=== PATIENT | female | born 1960 | race Caucasian/White ===

== ENCOUNTER 2016-12-29 06:17 | Emergency (ER) | payer BC ==
--- NOTE | ~2016-12-29 | CT4 ---
[facility] A Service of [facility] RADIOLOGY TEXT RESULTS PATIENT: ARIANNA OAKLEY LOCATION: [facility] : 56 UNIT #: [id number] AGE: [address]: Rigoberto Robison MD SEX: F ORDER DR: [id number] [facility] [address] [place], [place] [address] [id number] MR#: [id number] Acc #: [id number] NAME: ARIANNA OAKLEY : 1960 SEX: F STUDY DATE/TIME: 12/29/2016 7:22 UNIT: [facility] ROOM: STUDY DESCRIPTION: CT Abd and Pelv Wo Cont Attending Physician: Rigoberto Robison M.D. Ordering Physician: Rigoberto Robison M.D. Primary Care Physician: Dick Reeves M.D. MEDICAL IMAGING REPORT This report is preliminary unless electronic signature is present EXAM CT abdomen and pelvis 12/29/[address] abdomen and pelvis without contrast with multiplanar reformats. This CT examination was performed with one or more of the following radiation dose reduction techniques: automatic exposure control, adjustment of mA and/or kV according to patient size, and iterative reconstruction. COMPARISON Prior CT exams most recent dated 07/01/2010. HISTORY Right flank pain since last night. FINDINGS The lung bases are unremarkable. ABDOMEN: Unenhanced images of the liver are normal and the gallbladder has been removed. The spleen and pancreas are also unremarkable on these unenhanced images. Both adrenal glands are normal and the left kidney is normal, and on the right there is ureterectasis, but no renal stones are seen. A right renal hilar calcification is almost certainly vascular. There is no bowel obstruction and the aorta is normal in caliber. PELVIS: Uterus has been removed. There is no hernia or bowel obstruction. There is at least 1 small calcification in the pelvis on the right about 3 mm in size at least near the course of the right distal ureter though it is unclear whether this is a phlebolith or ureteral stone. No left ureterolithiasis is seen. [facility] A Service of [facility] RADIOLOGY TEXT RESULTS PATIENT: ARIANNA OAKLEY LOCATION: [facility] : 56 UNIT #: [id number] AGE: [address]: Rigoberto Robison MD SEX: F ORDER DR: The appendix is not identified but there is no evidence to suggest appendicitis. IMPRESSION 1. No definite hydronephrosis and no definite nephro- or ureterolithiasis on either side. No bowel or biliary obstruction. 2. Status post hysterectomy and cholecystectomy. The appendix is not identified but there is no CT evidence of appendicitis. 3. Prior lumbar surgery including L5-S1 fusion but no acute bony abnormality. Dictated by... Tereso Alves M.D. THIS IS AN ELECTRONICALLY VERIFIED REPORT Tereso Alves M.D. at 01/04/2017 10:34 AM ERIC/ajay TD: 12/29/2016 08:19 JOB #: [id number] MEDICAL IMAGING REPORT Page 1 of 1 COPY
[~2016-12-29 06:17] MED LIST: LORTAB PO; NO MEDICATIONS; NORCO 5/325 TAB1 TAB PO; PHENERGAN PO
[2016-12-29 07:02] LABS: URINE SOURCE CLEAN CATCH
[2016-12-29 07:06] LABS: BASOPHIL# 0.1 X10e3 (0-0.3); EOSINOPHIL# 0.1 X10e3 (0-0.7); EOSINOPHIL% 0.4 % (0.0-7.0); HEMATOCRIT 39.6 % (35.0-45.0); HEMOGLOBIN 12.9 gm/dL (12.0-16.0); LYMPHOCYTE# 3.5 X10e3 (1.0-3.5); LYMPHOCYTE% 26.3 % (17.0-45.0); MEAN CELL VOLUME 92.6 FL (83-96); MEAN CORPUSCULAR HEMOGLOBIN 30.3 PG (28-34); MEAN CORPUSCULAR HGB CONC 32.7 g/dL (30-36); MEAN PLATELET VOLUME 8.1 FL (6.5-11.5); MONOCYTE# 0.9 X10e3 (0-1.0); MONOCYTE% 6.7 % (3.0-12.0); NEUTROPHIL# 8.6 X10e3 (1.5-7.1); NEUTROPHIL% 65.6 % (40-75); PLATELET COUNT 302 X10e3 (140-420); RED BLOOD COUNT 4.27 X10e (3.90-5.30); RED CELL DISTRIBUTION WIDTH 13.4 % (11.0-15.5); WHITE BLOOD COUNT 13.2 X10e3 (4.0-10.5)
[2016-12-29 07:08] LABS: DIFF IND NO
[2016-12-29 07:11] LABS: URINE APPEARANCE CLEAR; URINE BILIRUBIN NEG (NEG); URINE BLOOD NEG (NEG); URINE COLOR YELLOW; URINE GLUCOSE NEG (NEG); URINE KETONE NEG (NEG); URINE LEUKOCYTE ESTERASE NEG (NEG); URINE NITRATE NEG (NEG); URINE PROTEIN NEG (NEG); URINE SPECIFIC GRAVITY 1.004 (1.003-1.035); URINE UROBILINOGEN 0.2 MG/DL (NEG)
[2016-12-29 07:19] LABS: CULTURE INDICATED? NO
[2016-12-29 07:58] LABS: ALBUMIN SERUM 4.3 g/dL (3.5-5.0); BILIRUBIN, DIRECT 0.1 mg/dL (0.0-0.2); BILIRUBIN,INDIRECT 0.5 mg/dL (0.0-0.9); BILIRUBIN,TOTAL 0.6 mg/dL (0.2-2.0); CALCIUM SERUM 9.6 mg/dL (8.4-10.2); CREATININE SERUM 0.7 mg/dL (0.6-1.4); GLOM FILT RATE Estimated 95.5 mL/min (>60); POTASSIUM 3.8 mmol/L (3.5-5.1); PROTEIN TOTAL SERUM 7.5 g/dL (6.0-8.3)
== END 2016-12-29 08:35 | disposition home or self-care (01) ==
LOC: CED 06:17
PROVIDERS: Emergency Medicine
DX: R10.9 Unspecified abdominal pain (principal); F17.210 Nicotine dependence, cigarettes, uncomplicated; Z90.49 Acquired absence of other specified parts of digestive tract
CPT/HCPCS: 36415; 74176; 80048; 80076; 81003; 83690; 85025; 96361; 96374; 96375; 99284; J1885; J2405